=== PATIENT | female | born 1995 | race Caucasian/White ===

== ENCOUNTER 2017-06-21 14:24 | Emergency (ER) | END 2017-06-21 19:48 | disposition home or self-care (01) ==

== ENCOUNTER 2017-11-22 07:27 | Outpatient (CLI) | END 2017-11-22 09:08 | disposition home or self-care (01) ==

== ENCOUNTER 2017-11-22 09:14 | Emergency (ER) | END 2017-11-22 10:22 | disposition home or self-care (01) ==

== ENCOUNTER 2018-01-17 09:30 | Inpatient (IN) | END 2018-01-20 13:20 | disposition home or self-care (01) | DRG 775 ==

== ENCOUNTER 2018-09-04 08:11 | Emergency (ER) | payer MEDICAID ==
[~2018-09-04] VITALS: Ht 160 cm; Wt 64.3 kg
[~2018-09-04 08:11] MED LIST: FERR134T PO; IBUP-1542 PO; PREN-19 PO
[2018-09-04 08:16] VITALS: BP 112/78; PULSE 70; RESP 18; Ht 160 cm; Wt 64.3 kg
[2018-09-04] MEDS ORDERED: SOD CHLORIDE 0.9% 1,000 ML IV STA (08:38)
[2018-09-04] MEDS ORDERED: KETOROLAC 30 MG INJ IV STA (08:38)
[2018-09-04] MEDS ORDERED: ONDANSETRON 4 MG INJ IV STA (08:38)
[2018-09-04] MEDS ORDERED: HYDR-4011 PO (10:35)
[2018-09-04] MEDS ORDERED: ONDA4TAB14 PO (10:35)
--- NOTE | 2018-09-04 13:27 | ERD ---
ER Documentation Chief Complaint Chief Complaint pt has ap x 2 days with nausea HPI 23-year-old female presenting with abdominal pain x2 days with nausea. She states the pain is constant. Is a headache and had nausea but no vomiting. Has not use any medications for her symptoms. Denies any chest pain or shortness of breath. Denies medical problems. NKDA. Surgical history denies. Up-to-date on vaccinations ROS All systems reviewed and are negative except as per history of present illness. Medications Home Meds Active Scripts Ondansetron (Ondansetron Odt) 4 Mg Tab.rapdis, 4 MG PO Q6H PRN for NAUSEA AND/OR VOMITING, #10 TAB Prov:MICHELET GREGORIO PA-C 09/04/18 Hydrocodone/Acetaminophen ([place] 5-325 Tablet) 1 Each Tablet, 1 TAB PO Q6H PRN for PAIN, #7 TAB Prov:MICHELET GREGORIO PA-C 09/04/18 Ibuprofen* (Ibuprofen*) 600 Mg Tablet, 600 MG PO Q6, #60 TAB 0 Refills Prov:SHARAN BISHOP MD 01/19/18 Reported Medications Ferrous Sulfate (Iron) 134 Mg Tablet, 134 MG PO DAILY, TAB 01/17/18 Vit #76/Iron,Carb/FA (Prenatabs Rx Tablet) 1 Each Tablet, 1 EACH PO DAILY, TAB 01/17/18 Allergies Allergies: Coded Allergies: No Known Allergy (Unverified , 09/04/18) PMhx/Soc Medical and Surgical Hx: pt denies Medical Hx, pt denies Surgical Hx Hx Alcohol Use: No Hx Substance Use: No Hx Tobacco Use: No Smoking Status: Never smoker FmHx Family History: No diabetes, No coronary disease, No other Physical Exam Vitals Vital Signs Date Temp Pulse Resp B/P (MAP) Pulse Ox O2 O2 Flow FiO2 Time Delivery Rate 09/04/18 98.3 70 18 112/78 100 08:16 (89) Physical Exam GENERAL: The patient is well-appearing, well-nourished, in no acute distress HEENT: Atraumatic. Conjunctivae are pink. Pupils equal, round, and reactive to light. There is no scleral icterus. Tympanic membranes clear bilaterally. Oropharynx clear. NECK: C-spine is soft and supple. There is no meningismus. There is no cervical lymphadenopathy. CHEST: Clear to auscultation bilaterally. There are no rales, wheezes or rhonchi. HEART: Regular rate and rhythm. No murmurs, clicks, rubs or gallops. ABDOMEN: Normal active bowel sounds. No distention. No organomegaly. Mild tenderness palpation the epigastric region as well as the pelvic region. Result Diagram: 09/04/18 0847 09/04/18 0847 Results 24 hrs Laboratory Tests Test 09/04/18 08:44 09/04/18 08:47 POC Beta HCG, Qualitative NEGATIVE White Blood Count 6.0 10^3/ul Red Blood Count 5.02 10^6/ul Hemoglobin 14.8 g/dl Hematocrit 43.4 % Mean Corpuscular Volume 86.5 fl Mean Corpuscular Hemoglobin 29.5 pg Mean Corpuscular Hemoglobin Concent 34.1 g/dl Red Cell Distribution Width 12.7 % Platelet Count 238 10^3/UL Mean Platelet Volume 11.2 fl Immature Granulocytes % 0.300 % Neutrophils % 54.9 % Lymphocytes % 32.1 % Monocytes % 6.7 % Eosinophils % 5.0 % Basophils % 1.0 % Nucleated Red Blood Cells % 0.0 /100WBC Immature Granulocytes # 0.020 10^3/ul Neutrophils # 3.3 10^3/ul Lymphocytes # 1.9 10^3/ul Monocytes # 0.4 10^3/ul Eosinophils # 0.3 10^3/ul Basophils # 0.1 10^3/ul Nucleated Red Blood Cells # 0.0 10^3/ul Urine Color YELLOW Urine Clarity SLIGHTLY CLOUDY Urine pH 5.0 Urine Specific [place] 1.019 Urine Ketones NEGATIVE mg/dL Urine Nitrite NEGATIVE mg/dL Urine Bilirubin NEGATIVE mg/dL Urine Urobilinogen NEGATIVE mg/dL Urine Leukocyte Esterase TRACE Jose Juan/ul Urine Microscopic RBC 2 /HPF Urine Microscopic WBC 3 /HPF Urine Squamous Epithelial Cells FEW /HPF Urine Bacteria FEW /HPF Urine Hemoglobin NEGATIVE mg/dL Urine Glucose NEGATIVE mg/dL Urine Total Protein NEGATIVE mg/dl Sodium Level 144 mmol/L Potassium Level 3.6 mmol/L Chloride Level 109 mmol/L Carbon Dioxide Level 25 mmol/L Anion Gap 10 Blood Urea Nitrogen 17 mg/dl Creatinine 0.69 mg/dl Est Glomerular Filtrat Rate mL/min > 60 mL/min Glucose Level 102 mg/dl Calcium Level 9.2 mg/dl Total Bilirubin 0.7 mg/dl Direct Bilirubin 0.00 mg/dl Indirect Bilirubin 0.7 mg/dl Aspartate Amino Transf (AST/SGOT) 24 IU/L Alanine Aminotransferase (ALT/SGPT) 29 IU/L Alkaline Phosphatase 161 IU/L Total Protein 7.6 g/dl Albumin 4.5 g/dl Globulin 3.10 g/dl Albumin/Globulin Ratio 1.45 Lipase 103 U/L Current Medications Medications Dose Sig/Estephania Start Time Status Last (Trade) Ordered Route PRN Stop Time Admin Dose Reason Admin Sodium 1,000 ml @ Q1H STAT 09/04/18 DC 09/04/18 Chloride 1,000 mls/hr IV 08:38 08:52 09/04/18 09:37 Ondansetron 4 mg ONCE STAT 09/04/18 DC 09/04/18 HCl (Zofran IV 08:38 08:52 Inj) 09/04/18 08:39 Ketorolac 30 mg ONCE STAT 09/04/18 DC 09/04/18 Tromethamine IV 08:38 08:53 (Toradol) 09/04/18 08:39 Procedures/MDM DIAGNOSTIC IMAGING REPORT Patient: NAM TAY : 1995 Age: 23 Sex: F MR #: [id number] DOS: 09/04/18 0838 Ordering MD: RICHY GREGORIO PA-C Location: [facility] Room/Bed: PROCEDURE: CT Abdomen and pelvis without contrast. CLINICAL INDICATION: Abdominal pain TECHNIQUE: CT scan of the abdomen and pelvis without contrast was performed on a multidetector high-resolution CT scan. . Coronal and sagittal reformatted images were obtained from the axial source images. Standard CT scan of the abdomen pelvis without contrast protocols were performed. The total exam CTDI equals 10.33 mGy and the total exam DLP equals 529.18 mGy- cm. One or more of the following dose reduction techniques were used: - Automated exposure control. - Adjustment of the mA and/or kV according to patient size. Use of iterative reconstruction technique. Dicom images are available COMPARISON: None. FINDINGS: The kidneys are normal in size without calcified calculi hydronephrosis or intra renal masses bilaterally. No evidence ureteral calcified calculi or dilatation. Partially contracted urinary bladder with mild wall thickening likely due to lack of optimal distension. Cystitis cannot be excluded. Retroverted otherwise unremarkable uterus. Low densities in the adnexa more prominent on the left likely ovarian follicular cysts. Stomach, small bowel, large bowel and appendix are unremarkable. No evidence of intra-abdominal free air, free fluid, abscesses or lymphadenopathy. There is however prominent but nonspecific lymph nodes in the right mid mesentery and rule out mesenteric lymphadenitis. Liver spleen pancreas adrenal glands and gallbladder unremarkable. No evidence b iliary ductal dilation. Lung bases unremarkable. Aorta unremarkable. Small fat containing umbilical hernia without herniated bowel or strangulation. Osseous structures unremarkable without acute osseous findings are osteoblastic/osteolytic lesion. IMPRESSION: 1. No gastrointestinal disease. 2. No evidence calcified urinary calculi or obstructive uropathy. 3. Negative intra-abdominal free air fluid abscesses or lymphadenopathy. Prominent lymph nodes in the right mid mesentery may represent mesenteric lymphadenitis. DIAGNOSTIC IMAGING REPORT Patient: NAM TAY : 1995 Age: 23 Sex: F MR #: [id number] DOS: 09/04/18 0838 Ordering MD: RICHY GREGORIO PA-C Location: [facility] Room/Bed: PROCEDURE: ULTRASOUND PELVIS CLINICAL INDICATION: 23-year-old female with abdominal/pelvic pain. TECHNIQUE: Multiple sonographic images of the pelvis were obtained utilizing a transabdominal and endovaginal technique. The images were reviewed on a PACS workstation. COMPARISON: None. FINDINGS: The uterus is visualized and measures 6.9 x 4.0 x 5.4 cm. The endometrial echo complex is within normal limits and measures 2.4 mm. There is no evidence for free fluid. The right ovary has a normal echotexture and measures 2.3 x 1.8 x 1.7 cm. The left ovary has a normal echotexture and measures 3.2 x 1.9 x 1.9 cm. There is flow identified within the ovaries bilaterally. No adnexal masses are noted. IMPRESSION: Unremarkable pelvic ultrasound. MDM: 23-year-old female presenting with abdominal pain. I have low suspicion for acute abdominal emergency. I have low suspicion for pulmonary cardiac emergency. Patient is discharged with supportive medications and told to follow-up with primary care within 1 to 2 days for close evaluation. She is told if symptoms change or worsen to return immediately to the ER. All questions answered at discharge Departure Diagnosis: Primary Impression: Abdominal pain Condition: Stable Patient Instructions: Abdominal Pain Referrals: SHARAN BISHOP MD (PCP) Additional Instructions: FOLLOW UP WITH YOUR PRIMARY CARE PHYSICIAN TOMORROW.Return to this facility if you are not improving as expected. MICHELET GREGORIO PA-C Sep 04, 2018 13:27
== END 2018-09-04 10:42 | disposition home or self-care (01) ==
LOC: FTE 08:11
DX: R10.9 Unspecified abdominal pain (principal); R10.2 Pelvic and perineal pain; R11.0 Nausea
CPT/HCPCS: 74176; 76830; 76856; 80053; 81001; 81025; 83690; 85025; J1885; J2405; J7030; 36415; 96361; 96374; 96375